=== PATIENT | female | born 1940 | race Caucasian/White ===

== ENCOUNTER 2017-08-29 10:23 | Outpatient (CLI) | payer MEDICARE, BC | END 2017-08-29 23:59 | disposition home or self-care (01) | LOC: RAD 10:23 | PROVIDERS: ATTEND Family Medicine | DX: M16.0 Bilateral primary osteoarthritis of hip (principal); M43.06 Spondylolysis, lumbar region; M47.898 Other spondylosis, sacral and sacrococcygeal region | CPT/HCPCS: 73502 ==

== ENCOUNTER 2017-10-08 22:05 | Emergency (ER) | payer MEDICARE, BC ==
[~2017-10-08] VITALS: Ht 154.9 cm; Wt 59.9 kg
[2017-10-08 22:18] VITALS: BP 134/86
[2017-10-08] MEDS ORDERED: ONDANSETRON 4 MG TAB.RAPDIS ONE (22:58)
[2017-10-08] MEDS ORDERED: ONDANSETRON 4 MG TAB.RAPDIS SL ONE (23:00)
--- NOTE | 2017-10-08 23:26 | NUR ---
REPORT REC'D FROM KEAGAN SANTIZO FOR [facility]OR[facility].
--- NOTE | 2017-10-08 23:43 | NUR ---
PO CHALLENGE DONE WITH 60 ML WATER. PT TOLERATED PO WELL. NO N/V NOTED.
--- NOTE | 2017-10-08 23:46 | NUR ---
Patient discharged to home in stable condition. Written and verbal after care instructions given. Patient verbalizes understanding of instruction AND RX. PT AMBULATED OUT WITH A STEADY GAIT. VSS. NAD NOTED.
== END 2017-10-08 23:49 | disposition home or self-care (01) ==
LOC: ER 22:07
DX: R11.2 Nausea with vomiting, unspecified (principal); R19.7 Diarrhea, unspecified
CPT/HCPCS: A4606; Q0162; Z7610

== ENCOUNTER 2019-07-31 11:30 | Outpatient (CLI) | payer MEDICARE, BC | END 2019-07-31 23:59 | disposition home or self-care (01) | LOC: WOU 11:30 | PROVIDERS: ATTEND Surgery | DX: C50.412 Malignant neoplasm of upper-outer quadrant of left female breast (principal); Z17.0 Estrogen receptor positive status [ER+]; E03.9 Hypothyroidism, unspecified; Z79.890 Hormone replacement therapy | CPT/HCPCS: G0463 ==

== ENCOUNTER 2019-08-07 11:25 | Outpatient (CLI) | payer MEDICARE, BC | END 2019-08-07 23:59 | disposition home or self-care (01) | LOC: WOU 11:25 | PROVIDERS: ATTEND Surgery | DX: C50.412 Malignant neoplasm of upper-outer quadrant of left female breast (principal); Z17.0 Estrogen receptor positive status [ER+]; Z87.891 Personal history of nicotine dependence | CPT/HCPCS: G0463 ==

== ENCOUNTER 2019-08-14 12:40 | Outpatient (CLI) | payer MEDICARE, BC | END 2019-08-14 23:59 | disposition home or self-care (01) | LOC: WOU 12:40 | PROVIDERS: ATTEND Surgery | DX: C50.412 Malignant neoplasm of upper-outer quadrant of left female breast (principal); Z17.0 Estrogen receptor positive status [ER+]; Z87.891 Personal history of nicotine dependence | CPT/HCPCS: G0463 ==

== ENCOUNTER 2019-08-20 10:36 | Outpatient (CLI) | payer MEDICARE, BC ==
[2019-08-21] MEDS ORDERED: HYDROMORPHONE INJ 2 MG/ML DISP.SYRIN ONE (07:30)
[2019-08-21] MEDS ORDERED: ROCURONIUM BROMIDE 50 MG/5 ML ONE (07:30)
== END 2019-08-20 23:59 | disposition home or self-care (01) ==
LOC: RAD 10:36
PROVIDERS: ATTEND Surgery
DX: C50.912 Malignant neoplasm of unspecified site of left female breast (principal)
CPT/HCPCS: 78195; A9541; J1170

== ENCOUNTER 2019-08-21 06:28 | Day surgery (SDC) | payer MEDICARE, BC ==
[~2019-08-21 06:28] MED LIST: ANESTHESIA TRAY IN PYXIS 1 EA TRAY MC ONE
[2019-08-21] MEDS ORDERED: ANESTHESIA TRAY IN PYXIS 1 EA TRAY MC ONE (07:06)
[2019-08-21] MEDS ORDERED: METHYLENE BLUE 10 ML VIAL ONE (08:18)
[2019-08-22] MEDS ORDERED: oxyCODONE/APAP (5/325 MG) 1 UDTAB TABLET PO PRN (09:00)
== END 2019-08-21 13:40 | disposition home or self-care (01) ==
LOC: DS 06:28
PROVIDERS: ATTEND Surgery
PROC: 0H0T0ZZ Alteration of Right Breast, Open Approach (ICD-10-PCS; principal; 2019-08-21)
PROC: 07B60ZX Excision of Left Axillary Lymphatic, Open Approach, Diagnostic (ICD-10-PCS; principal; 2019-08-21)
PROC: 0HBU0ZZ Excision of Left Breast, Open Approach (ICD-10-PCS; principal; 2019-08-21)
PROC: 0HBU0ZX Excision of Left Breast, Open Approach, Diagnostic (ICD-10-PCS; principal; 2019-08-21)
DX: C50.412 Malignant neoplasm of upper-outer quadrant of left female breast (principal); N64.89 Other specified disorders of breast; Z17.0 Estrogen receptor positive status [ER+]; K21.9 Gastro-esophageal reflux disease without esophagitis; N65.1 Disproportion of reconstructed breast
CPT/HCPCS: 19301; 19318; 38525; 38900; 71045; 88305; 88307; 88331 ×2; 88360 ×2; J0690; J1100; J1885; J2405; J2704; J2710; J3490 ×2; Q9968

== ENCOUNTER 2019-08-22 10:50 | Outpatient (CLI) | payer MEDICARE, BC | END 2019-08-22 23:59 | disposition home or self-care (01) | LOC: WOU 10:50 | PROVIDERS: ATTEND Surgery | DX: Z48.3 Aftercare following surgery for neoplasm (principal); C50.412 Malignant neoplasm of upper-outer quadrant of left female breast; Z17.0 Estrogen receptor positive status [ER+] | CPT/HCPCS: G0463 ==

== ENCOUNTER 2019-09-04 12:00 | Outpatient (CLI) | payer MEDICARE, BC | END 2019-09-04 23:59 | disposition home or self-care (01) | LOC: WOU 12:00 | PROVIDERS: ATTEND Surgery | DX: Z48.3 Aftercare following surgery for neoplasm (principal); C50.412 Malignant neoplasm of upper-outer quadrant of left female breast; Z17.0 Estrogen receptor positive status [ER+] | CPT/HCPCS: G0463 ==

== ENCOUNTER 2019-09-11 12:00 | Outpatient (CLI) | payer MEDICARE, BC | END 2019-09-11 23:59 | disposition home or self-care (01) | LOC: WOU 12:00 | PROVIDERS: ATTEND Surgery | DX: Z48.3 Aftercare following surgery for neoplasm (principal); C50.412 Malignant neoplasm of upper-outer quadrant of left female breast; Z17.0 Estrogen receptor positive status [ER+] | CPT/HCPCS: G0463 ==

== ENCOUNTER 2019-09-25 12:00 | Outpatient (CLI) | payer MEDICARE, BC | END 2019-09-25 23:59 | disposition home or self-care (01) | LOC: WOU 12:00 | PROVIDERS: ATTEND Surgery | DX: Z48.3 Aftercare following surgery for neoplasm (principal); C50.412 Malignant neoplasm of upper-outer quadrant of left female breast; Z17.0 Estrogen receptor positive status [ER+] | CPT/HCPCS: G0463 ==

== ENCOUNTER 2019-10-02 08:35 | Day surgery (SDC) | payer MEDICARE, BC ==
[2019-10-02] MEDS ORDERED: FENTANYL PF 250MCG/5ML AMPUL ONE (10:16)
[2019-10-02] MEDS ORDERED: FAMOTIDINE/PF INJ 20 MG/2 ML VIAL IV ONE (10:17)
[2019-10-02] MEDS ORDERED: HYDROMORPHONE INJ 2 MG/ML DISP.SYRIN ONE (10:17)
[2019-10-02] MEDS ORDERED: LIDOCAINE 1%-EPI 1:100,000 20 ML VIAL ONE (10:44)
== END 2019-10-02 13:40 | disposition home or self-care (01) ==
LOC: DS 08:35
PROVIDERS: ATTEND Surgery
DX: C50.912 Malignant neoplasm of unspecified site of left female breast (principal); Z87.891 Personal history of nicotine dependence; Z90.12 Acquired absence of left breast and nipple; Z88.1 Allergy status to other antibiotic agents; Z88.8 Allergy status to other drugs, medicaments and biological substances; E78.5 Hyperlipidemia, unspecified; M25.519 Pain in unspecified shoulder; E03.9 Hypothyroidism, unspecified; Z79.899 Other long term (current) drug therapy
CPT/HCPCS: 19301; 36561; 76937; 77001; C1788; 71045-TC; 88305-TC; J0330; J0690; J1170; J1644; J2405; J2704; J2765; J3010; J3490

== ENCOUNTER 2019-10-16 12:00 | Outpatient (CLI) | payer MEDICARE, BC | END 2019-10-16 23:59 | disposition home or self-care (01) | LOC: WOU 12:00 | PROVIDERS: ATTEND Surgery | DX: Z48.3 Aftercare following surgery for neoplasm (principal); C50.412 Malignant neoplasm of upper-outer quadrant of left female breast; Z17.0 Estrogen receptor positive status [ER+] | CPT/HCPCS: G0463 ==

== ENCOUNTER 2020-04-22 11:45 | Outpatient (CLI) | payer MEDICARE, BC | END 2020-04-22 23:59 | disposition home or self-care (01) | LOC: WOU 11:45 | PROVIDERS: ATTEND Surgery | DX: Z48.3 Aftercare following surgery for neoplasm (principal); Z85.3 Personal history of malignant neoplasm of breast; Z92.21 Personal history of antineoplastic chemotherapy; Z92.3 Personal history of irradiation | CPT/HCPCS: G0463 ==

== ENCOUNTER 2020-08-19 10:55 | Outpatient (CLI) | payer MEDICARE, BC | END 2020-08-19 23:59 | disposition home or self-care (01) | LOC: WOU 10:55 | PROVIDERS: ATTEND Surgery | DX: Z08 Encounter for follow-up examination after completed treatment for malignant neoplasm (principal); Z85.3 Personal history of malignant neoplasm of breast | CPT/HCPCS: G0463 ==

== ENCOUNTER 2020-12-16 11:38 | Outpatient (CLI) | payer MEDICARE, BC | END 2020-12-16 23:59 | disposition home or self-care (01) | LOC: WOU 11:38 | PROVIDERS: ATTEND Surgery | DX: Z08 Encounter for follow-up examination after completed treatment for malignant neoplasm (principal); Z85.3 Personal history of malignant neoplasm of breast | CPT/HCPCS: G0463 ==

== ENCOUNTER 2021-01-18 09:00 | Outpatient (CLI) | payer MEDICARE, BC | END 2021-01-18 23:59 | disposition home or self-care (01) | LOC: WOU 09:00 | PROVIDERS: ATTEND Surgery | DX: Z08 Encounter for follow-up examination after completed treatment for malignant neoplasm (principal); Z85.3 Personal history of malignant neoplasm of breast; M25.50 Pain in unspecified joint; T50.995D Adverse effect of other drugs, medicaments and biological substances, subsequent encounter; Z79.818 Long term (current) use of other agents affecting estrogen receptors and estrogen levels; Z90.711 Acquired absence of uterus with remaining cervical stump | CPT/HCPCS: G0463 ==

== ENCOUNTER 2021-08-09 08:05 | Outpatient (CLI) | payer MEDICARE, BC | END 2021-08-09 23:59 | disposition home or self-care (01) | LOC: WOU 08:05 | PROVIDERS: ATTEND Surgery | DX: Z08 Encounter for follow-up examination after completed treatment for malignant neoplasm (principal); Z85.3 Personal history of malignant neoplasm of breast | CPT/HCPCS: G0463 ==

== ENCOUNTER 2021-08-22 10:55 | Outpatient (CLI) | payer MEDICARE, BC | END 2021-08-22 23:59 | disposition home or self-care (01) | LOC: CT 10:55 → LAB 23:59 | PROVIDERS: ATTEND Internal Medicine Hematology & Oncology | DX: R94.4 Abnormal results of kidney function studies (principal); R97.8 Other abnormal tumor markers | CPT/HCPCS: 36415; 82565-TC; 84520-TC ==

== ENCOUNTER 2021-08-23 08:45 | Outpatient (CLI) | payer MEDICARE, BC | END 2021-08-23 23:59 | disposition home or self-care (01) | LOC: WOU 08:45 | PROVIDERS: ATTEND Surgery | DX: Z08 Encounter for follow-up examination after completed treatment for malignant neoplasm (principal); Z85.3 Personal history of malignant neoplasm of breast | CPT/HCPCS: G0463 ==

== ENCOUNTER 2021-08-23 11:03 | Outpatient (CLI) | payer MEDICARE, BC ==
[2021-08-23] MEDS ORDERED: CT SWABBABLE VALVE TRANS SET 1 EA INFUS.SET MC ONE (11:21)
[2021-08-23] MEDS ORDERED: IOHEXOL-300 100 ML VIAL IV ONE (11:21)
[2021-08-23] MEDS ORDERED: IV NS 0.9% 250 ML IV ONE (11:21)
== END 2021-08-23 23:59 | disposition home or self-care (01) ==
LOC: CT 11:03
PROVIDERS: ATTEND Internal Medicine Hematology & Oncology
DX: C50.919 Malignant neoplasm of unspecified site of unspecified female breast (principal); I25.10 Atherosclerotic heart disease of native coronary artery without angina pectoris; K44.9 Diaphragmatic hernia without obstruction or gangrene; K57.30 Diverticulosis of large intestine without perforation or abscess without bleeding; R91.8 Other nonspecific abnormal finding of lung field; K76.0 Fatty (change of) liver, not elsewhere classified; N28.1 Cyst of kidney, acquired; I70.0 Atherosclerosis of aorta; M47.819 Spondylosis without myelopathy or radiculopathy, site unspecified; M43.16 Spondylolisthesis, lumbar region; Z90.710 Acquired absence of both cervix and uterus
CPT/HCPCS: 71260; 74177; J7050; Q9967

== ENCOUNTER 2021-09-09 13:23 | Outpatient (CLI) | payer MEDICARE, BC | END 2021-09-09 23:59 | disposition home or self-care (01) | LOC: MRI 13:23 | PROVIDERS: ATTEND Internal Medicine Hematology & Oncology | DX: C50.919 Malignant neoplasm of unspecified site of unspecified female breast (principal) | CPT/HCPCS: 74181-TC ==

== ENCOUNTER 2021-12-19 09:39 | Outpatient (CLI) | payer MEDICARE, BC ==
[2021-12-19] MEDS ORDERED: IV NS 0.9% 250 ML IV ONE (10:14)
[2021-12-19] MEDS ORDERED: CT SWABBABLE VALVE TRANS SET 1 EA INFUS.SET MC ONE (10:14)
[2021-12-19] MEDS ORDERED: IOHEXOL-300 100 ML VIAL IV ONE (10:14)
== END 2021-12-19 23:59 | disposition home or self-care (01) ==
LOC: CT 09:39
PROVIDERS: ATTEND Internal Medicine Hematology & Oncology
DX: R91.1 Solitary pulmonary nodule (principal); K44.9 Diaphragmatic hernia without obstruction or gangrene; J84.10 Pulmonary fibrosis, unspecified; M47.814 Spondylosis without myelopathy or radiculopathy, thoracic region; R06.00 Dyspnea, unspecified; C50.919 Malignant neoplasm of unspecified site of unspecified female breast
CPT/HCPCS: 71260; J7050; Q9967

== ENCOUNTER → 2022-01-10 | Outpatient (CLI) | payer MEDICARE, BC ==
[~2022-01-10] MED LIST changes: -ANESTHESIA TRAY IN PYXIS 1 EA TRAY MC ONE; +LIDOCAINE 1%-EPI 1:100,000 50 ML VIAL IJ ONE
== END | disposition home or self-care (01) ==
LOC: WOU 08:45
PROVIDERS: ATTEND Surgery
DX: Z45.2 Encounter for adjustment and management of vascular access device (principal)
CPT/HCPCS: 36590; J3490

== ENCOUNTER 2022-01-27 09:54 | Outpatient (CLI) | payer MEDICARE, BC | END 2022-01-27 23:59 | disposition home or self-care (01) | LOC: US 09:54 | PROVIDERS: ATTEND Internal Medicine Hematology & Oncology | DX: R10.2 Pelvic and perineal pain (principal); Z90.710 Acquired absence of both cervix and uterus | CPT/HCPCS: 76856-TC ==

== ENCOUNTER 2022-02-15 09:38 | Outpatient (CLI) | payer MEDICARE, BC ==
[2022-02-15] MEDS ORDERED: IOHEXOL-300 100 ML VIAL IV ONE (10:19)
== END 2022-02-15 23:59 | disposition home or self-care (01) ==
LOC: CT 09:38
PROVIDERS: ATTEND Internal Medicine Hematology & Oncology
DX: K57.30 Diverticulosis of large intestine without perforation or abscess without bleeding (principal); K44.9 Diaphragmatic hernia without obstruction or gangrene; C50.919 Malignant neoplasm of unspecified site of unspecified female breast; R91.1 Solitary pulmonary nodule; R10.31 Right lower quadrant pain
CPT/HCPCS: 71260; 74177; Q9967